=== PATIENT | female | born 2000 | race Caucasian/White ===

== ENCOUNTER 2019-01-22 12:14 | Emergency (ER) | payer BC | END 2019-01-22 12:23 | disposition left against medical advice (07) | LOC: UCCORT 12:14 | DX: Z53.21 Procedure and treatment not carried out due to patient leaving prior to being seen by health care provider (principal) ==

== ENCOUNTER 2019-07-03 13:07 | Emergency (ER) | payer BC, OTHER ==
[2019-07-03 13:48] VITALS: BP 103/62
--- NOTE | 2019-07-03 14:07 | UC ---
Throat Pain/Nasal Jomar HPI - HPI Summary HPI Summary: 18-year-old female who has had a sore throat over the past 2 days. She's had some fatigue but no fever and chills. She states today she looked at her throat and there were white spots on it. - History of Current Complaint Chief Complaint: UCGeneralIllness Stated Complaint: ST Time Seen by Provider: 07/03/19 13:39 Hx Obtained From: Patient Hx Last Menstrual Period: pt does not get period - on depo shot ?: No Onset/Duration: Gradual Onset Severity: Mild Pain Intensity: 6 Cough: None Associated Signs & Symptoms: Positive: Negative - Allergies/Home Medications Allergies/Adverse Reactions: Allergies Allergy/AdvReac Type Severity Reaction Status Date / Time No Known Allergies Allergy Verified 07/03/19 13:48 Home Medications: Home Medications Nitrofurantoin Macrocrystal [Macrodantin 50 MG] 1 tab PO DAILY 07/03/19 [ History Confirmed 07/03/19] PMH/Surg Hx/FS Hx/Imm Hx Previously Healthy: Yes - Surgical History Surgical History: Yes Surgery Procedure, Year, and Place: appendectomy. kidney reflux surgery - Family History Known Family History: Positive: None - Social History Occupation: Student Lives: Dormitory/Roommates Alcohol Use: Occasionally Substance Use Type: None Smoking Status (MU): Never Smoked Tobacco Review of Systems All Other Systems Reviewed And Are Negative: Yes Constitutional: Positive: Fatigue ENT: Positive: Sore Throat Is Patient Immunocompromised?: No Physical Exam Triage Information Reviewed: Yes Appearance: Well-Appearing, No Pain Distress, Well-Nourished Vital Signs: Initial Vital Signs Temp 99.6 F 07/03/19 13:42 Pulse 77 07/03/19 13:42 Resp 16 07/03/19 13:42 BP 103/62 07/03/19 13:42 Pulse Ox 100 07/03/19 13:42 Vital Signs Reviewed: Yes Eyes: Positive: Conjunctiva Clear ENT: Positive: Hearing grossly normal, Pharyngeal erythema - Minimal tonsillar erythema, no exudate, or ulcerations, TMs normal, Uvula midline Neck: Positive: Supple, Nontender, No Lymphadenopathy Respiratory: Positive: Lungs clear, Normal breath sounds, No respiratory distress, No accessory muscle use Cardiovascular: Positive: RRR, No Murmur, Pulses Normal, Brisk Capillary Refill Abdomen Description: Positive: Nontender, No Organomegaly, Soft. Negative: CVA Tenderness (R), CVA Tenderness (L) Bowel Sounds: Positive: Present Musculoskeletal Exam: Normal Neurological Exam: Normal Psychological Exam: Normal Skin Exam: Normal Throat Pain/Nasal Course/Dx - Course Course Of Treatment: Patient is comfortable here. Rapid strep test was negative. She is to do warm saltwater gargles, throat lozenges and follow-up at the [facility] if no improvement in 3 or 4 days. - Differential Dx/Diagnosis Provider Diagnosis: Pharyngitis Discharge ED - Sign-Out/Discharge Documenting (check all that apply): Patient Departure All imaging exams completed and their final reports reviewed: No Studies - Discharge Plan Condition: Good Disposition: HOME Patient Education Materials: Pharyngitis (ED) Referrals: No Primary Care Phys,NOPCP [Primary Care Provider] - JANNET GUTIÉRREZ [Z.BUSINESS, APPLICATION, OTHER] - Additional Instructions: Increase fluids, warm saltwater gargles, throat lozenges. Take Tylenol or Motrin for comfort. Follow up at the [facility] if no improvement in 3 or 4 days - Billing Disposition and Condition Condition: GOOD Disposition: Home
== END 2019-07-03 14:19 | disposition home or self-care (01) ==
LOC: UCCORT 13:07
DX: J02.9 Acute pharyngitis, unspecified (principal); Z79.899 Other long term (current) drug therapy
CPT/HCPCS: 87651; 99211; G0463